=== PATIENT | female | born 1955 | race Caucasian/White ===

== ENCOUNTER → 2017-02-22 | Day surgery (SDC) | payer BC ==
[~2017-02-22] MED LIST: Lactated Ringers 1,000 ML IV SCH; Propofol 200 MG/20 ML SDV IV ONE
[2017-02-22 11:30] VITALS: BP 112/65
--- NOTE | 2017-02-25 07:23 | OR ---
DATE OF OPERATION: 02/22/2017 PREOPERATIVE DIAGNOSIS: EPIGASTRIC PAIN. POSTOPERATIVE DIAGNOSIS: EPIGASTRIC PAIN. SURGEON: Maynor Orta MD PROCEDURE: FULL-LENGTH ESOPHAGOGASTRODUODENOSCOPY WITH BIOPSIES X2, DOROTHEA. 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 COMPLICATIONS: None. SPECIMEN: 1. Antral biopsy x2. 2. DOROTHEA. FINDINGS: 1. Full-length EGD. 2. Mild gastritis without ulceration or erosion. RECOMMENDATIONS: Ongoing medical therapy. INDICATIONS: The patient had presented with epigastric pain. At that time, using a lot of anti-inflammatories, we elected to treat her empirically. She is still having some persistent pain, so we recommended EGD. DESCRIPTION OF PROCEDURE: The patient was prepped and draped, placed in the left lateral decubitus position. A lubricated Olympus gastroscope was inserted over a bit, advanced cricopharyngeus area and easily intubated in the esophagus. Esophageal lining was benign in its entire course. The Z-line was crisp and sharp at 39 cm. No hernia is seen. No distal esophagitis, stricturing, ulceration, or Castellano's changes. The scope advanced into the stomach through the pylorus into the third portion of duodenum. The second and third portion of the duodenum along with the duodenal bulb were completely unremarkable. The scope was brought back into the stomach and retroflexed. The upper fundus and cardia appeared completely benign. Thorough evaluation on rest of the gastric lining showed some chronic and indolent gastritis mainly located in the antrum without any focal ulceration or erosions. Biopsies x2 of the antrum were taken along with a DOROTHEA test. No other polyps, masses, or bleeding sites were seen. Air was then suctioned. Scope was removed without complication. EDUARDO/GI /[id number]
== END ==
LOC: CC.SDS 09:42
PROVIDERS: ATTEND Family Medicine
DX: K31.9 Disease of stomach and duodenum, unspecified (principal); Z88.2 Allergy status to sulfonamides; Z88.8 Allergy status to other drugs, medicaments and biological substances; Z79.899 Other long term (current) drug therapy; Z90.710 Acquired absence of both cervix and uterus; Z98.890 Other specified postprocedural states
CPT/HCPCS: 43239; 87081; J2704; J7120

== ENCOUNTER 2017-07-04 12:55 | Observation (INO) | payer BC ==
[2017-07-04] MEDS ORDERED: Sodium Chloride 0.9% 10 ML Syringe FLUSH PRN (14:39)
[2017-07-04] MEDS ORDERED: Temazepam 15 MG Cap PO PRN (14:39)
[2017-07-04] MEDS ORDERED: Polyethylene Glycol 3350 Powder 238 GM Bot PO PRN ×2 (14:45→15:19)
[2017-07-04] MEDS ORDERED: Pantoprazole 40 MG Vial IVPUSH SCH (15:00)
[2017-07-04 15:29] LABS: CHLORIDE,CL 104 mEq/L (98-106); SODIUM,NA 140 mEq/L (136-145)
[2017-07-04] MEDS ORDERED: traMADol 50 MG Tab PO PRN (18:15)
[2017-07-04] MEDS: Acetaminophen 325 MG Tab PO PRN (18:20)
[2017-07-04] MEDS ORDERED: ZOLPIDEM 12.5 MG PO SCH ×2 (20:00)
[2017-07-04] MEDS ORDERED: Sucralfate 1 GM Tab PO SCH (20:00)
[2017-07-05] MEDS ORDERED: Ondansetron 4 MG/2 ML SDV IVPUSH PRN (01:12)
[2017-07-05] MEDS ORDERED: ESTRADIOL 2 MG PO SCH (08:00)
[2017-07-05] MEDS ORDERED: Pantoprazole 40 MG Tab.CR PO SCH (08:00)
[2017-07-05] MEDS: Acetaminophen 325 MG Tab PO PRN (09:07)
[2017-07-05 11:44] VITALS: BP 105/66
--- NOTE | 2017-07-05 17:50 | OR ---
DATE OF OPERATION: 07/05/2017 PROCEDURE: STRESS TEST. DESCRIPTION OF PROCEDURE: Bernie is in the hospital for atypical chest pain, and we elected to proceed with stress testing and she is ruled out thus far for any cardiac ischemia. She was exercised using standard [place] protocol for a total exercise time of 10 minutes and 29 seconds. She was able to exercise in the treadmill stage IV without much difficulty. There was no chest pain during the testing phase. The test was stopped due to shortness of breath and reaching target heart rate. She had a maximal heart rate of 146 which was above target of 136 and maximum BP of 150/80. At maximum exercise, the patient had no exercise-induced arrhythmias. All ST segments appeared to be upsloping without any signs of ischemia. This was considered an adequate and negative treadmill stress test. EDUARDO/GI /[id number]
--- NOTE | 2017-07-08 08:27 | DISCH ---
ADMISSION DIAGNOSIS: Chest pain. DISCHARGE DIAGNOSIS: CHEST PAIN. HISTORY: The patient is a 62-year-old female, who came into my office for which she thought was a flu. She had been having some headaches and muscle aches. Did wake up on the morning of admission with some chest heaviness that went away in 20 minutes. She said this was associated with her legs feeling cold. We evaluated her in the clinic. At that time, she had normal labs including a D- dimer, troponin, and an EKG. Her chest x-ray looked fine. We elected to put her in the hospital for observation and serial cardiac enzymes and EKGs. HOSPITAL COURSE: The patient was essentially asymptomatic since she has been here. She did have some vomiting and diarrhea during the night, feeling better now this morning. She has not had any further chest pain. Denies any shortness of breath. We did do a standard Antwon stress test on the morning of discharge and she passed without difficulty with 10.5 minutes with normal vitals, asymptomatic, and a normal telemetry. We elected to discharge her home on her current medications. We will follow her up in the clinic as an outpatient. COMPLICATIONS: During the stay were none. CONSULTATIONS: None. PROCEDURES: Standard Antwon stress test. DISPOSITION: Discharged home. BARNEY /[id number]
== END 2017-07-05 13:38 | disposition home or self-care (01) ==
LOC: CC.MS 12:55 → UNDOADMOB 12:55 → CC.MS 14:39
PROVIDERS: ADMIT Family Medicine; ATTEND Family Medicine
DX: R07.9 Chest pain, unspecified (principal); Z88.1 Allergy status to other antibiotic agents; Z88.2 Allergy status to sulfonamides; Z88.8 Allergy status to other drugs, medicaments and biological substances; Z79.899 Other long term (current) drug therapy; Z90.710 Acquired absence of both cervix and uterus; Z98.890 Other specified postprocedural states; Z78.9 Other specified health status
CPT/HCPCS: 36415; 71020; 80048; 82550; 84484; 85025; 85379; 86140; 93005; 93017; 96374; 96375; A9270; C9113; G0378; J2405

== ENCOUNTER 2017-10-31 07:55 | Emergency (ER) | payer BC ==
[2017-10-31 08:24] VITALS: BP 117/71
[2017-10-31 08:37] LABS: CHLORIDE,CL 105 mEq/L (98-106); SODIUM,NA 138 mEq/L (136-145)
--- NOTE | 2017-10-31 08:38 | EDM.PDOC ---
ED HPI GENERAL MEDICAL PROBLEM - General Chief Complaint: General Stated Complaint: NOT FEELING WELL Time Seen by Provider: 10/31/17 08:15 Source of Information: Reports: Patient - History of Present Illness INITIAL COMMENTS - FREE TEXT/NARRATIVE: Bernie is a 62 year old female who presents to the ED with complaint of "not feeling well." She reports that she hasn't felt well since Saturday. She reports she had an upper molar pulled at the dental office on Saturday. She reports that they had a difficult time stopping the bleeding. She has not noted a large amount of bleeding since then, but does not some drainage from the site. Since then she has felt sick to her stomach. She reports she has felt nauseous, but has not vomited. She reports she feels very weak and fatigued. She reports she has not eaten or drank much since Saturday. Has also had intermittent epigastric pain. She does report a history of stomach ulcers a few years ago. She does not currently take anything for this. She also reports she gets sinus infections occasionally and does feel that she might have one currently. She c/o headache, facial pressure and pain, extending up into her eye sockets. Denies any diarrhea , abdominal pain, chest pain, shortness of breath, fever, chills, cough. Does c /o of some constipation. Has not had a bowel movement since Saturday, 3 days ago. Reports she normally takes Miralax, but hasn't been able to because of the nausea the past few days. - Related Data Allergies Allergy/AdvReac Type Severity Reaction Status Date / Time cephalexin [Cephalexin] Allergy Hives Verified 10/31/17 09:06 fluorouracil Allergy Hives Verified 10/31/17 09:06 fluoxetine Allergy Hives Verified 10/31/17 09:06 Sulfa (Sulfonamide Allergy Hives Verified 10/31/17 09:06 Antibiotics) sulfamethoxazole Allergy Cannot Verified 10/31/17 09:06 [From Bactrim] Remember trimethoprim [From Bactrim] Allergy Cannot Verified 10/31/17 09:06 Remember Mag Sulfate Allergy Seizure Uncoded 07/05/17 15:42 Home Meds: Home Meds Polyethylene Glycol 3350 [MiraLAX] 17 gm PO BID 02/18/14 [History] Zolpidem [Ambien] 12.5 mg PO BEDTIME 02/18/14 [History] Estradiol [Estrace] 2 mg PO DAILY 07/04/17 [History] Triamcinolone Acetonide [Triamcinolone Acetonide 0.5%] 1 applic TOP ASDIRECTED PRN 07/04/17 [History] traMADol HCl [Tramadol HCl] 1 - 2 tab PO Q6H PRN 07/04/17 [History] Amoxicillin 500 mg PO BID 14 Days #28 capsule 10/31/17 [Rx] Ondansetron 4 mg PO Q6H PRN #30 tablet 10/31/17 [Rx] Sucralfate [Carafate] 1 gm PO TID 30 Days #90 tablet 10/31/17 [Rx] Past Medical History HEENT History: Reports: Sinusitis Respiratory History: Reports: Asthma Gastrointestinal History: Reports: Chronic Constipation Neurological History: Reports: Concussion Oncologic (Cancer) History: Reports: Malignant Melanoma, Squamous Cell Carcinoma Dermatologic History: Reports: Melanoma - Past Surgical History HEENT Surgical History: Reports: Adenoidectomy, Tonsillectomy, Other (See Below) Other HEENT Surgeries/Procedures: removal of skin cancer on the face GI Surgical History: Reports: Cholecystectomy Female Surgical History: Reports: Hysterectomy, Kidney stone extraction Social & Family History - Family History Family Medical History: Noncontributory - Tobacco Use Smoking Status *Q: Never Smoker Second Hand Smoke Exposure: No - Caffeine Use Caffeine Use: Reports: Coffee - Recreational Drug Use Recreational Drug Use: No ED ROS GENERAL - Review of Systems Review Of Systems: See Below Constitutional: Reports: Weakness, Fatigue. Denies: Fever, Chills HEENT: Reports: Dental Pain, Rhinitis, Sinus Problem. Denies: Eye Pain, Vision Change Respiratory: Denies: Shortness of Breath, Pleuritic Chest Pain, Cough, Sputum, Hemoptysis Cardiovascular: Reports: Lightheadedness. Denies: Chest Pain, Dyspnea on Exertion, Edema Endocrine: Reports: Fatigue GI/Abdominal: Reports: Abdominal Pain, Anorexia, Constipation, Decreased Appetite, Nausea. Denies: Black Stool, Bloody Stool, Diarrhea, Hematemesis, Hematochezia, Melena, Mucous in Stool, Vomiting : Reports: No Symptoms. Denies: Discharge, Dysuria, Flank Pain, Frequency, Urgency Musculoskeletal: Reports: No Symptoms Skin: Reports: No Symptoms Neurological: Reports: Dizziness, Headache, Weakness. Denies: Confusion, Numbness, Syncope, Tingling Psychiatric: Reports: No Symptoms Hematologic/Lymphatic: Reports: No Symptoms Immunologic: Reports: No Symptoms ED EXAM, GENERAL - Physical Exam Exam: See Below Exam Limited By: No Limitations General Appearance: Alert, WD/WN, No Apparent Distress Eye Exam: Bilateral Eye: EOMI Ears: Normal External Exam, Normal Canal, Hearing Grossly Normal, Normal TMs Ear Exam: Bilateral Ear: TM normal Nose: No Blood, Nasal Swelling, Nasal Drainage, Clear Rhinorrhea Throat/Mouth: Normal Inspection, Normal Lips, Normal Teeth, Normal Gums, Normal Oropharynx, Normal Voice, No Airway Compromise, Other (inflammation and drainage to left upper 1st molar) Head: Atraumatic, Normocephalic Neck: Normal Inspection, Supple, Non-Tender, Full Range of Motion Respiratory/Chest: No Respiratory Distress, Lungs Clear, Normal Breath Sounds, No Accessory Muscle Use, Chest Non-Tender Cardiovascular: Normal Peripheral Pulses, Regular Rate, Rhythm, No Edema, No Gallop, No JVD, No Murmur, No Rub GI/Abdominal: Normal Bowel Sounds, Soft, No Organomegaly, No Distention, No Abnormal Bruit, No Mass, Pelvis Stable, Tender (epigastric area). No: Guarding , Rigid, Rebound Back Exam: Normal Inspection, Full Range of Motion. No: CVA Tenderness (L), CVA Tenderness (R) Extremities: Normal Inspection, Normal Range of Motion, Non-Tender, Normal Capillary Refill, No Pedal Edema Neurological: Alert, Oriented, CN II-XII Intact, Normal Cognition, Normal Gait, Normal Reflexes, No Motor/Sensory Deficits Psychiatric: Tearful Skin Exam: Warm, Dry, Intact, Normal Color, No Rash Lymphatic: No Adenopathy Course - Vital Signs Last Recorded V/S: Last Vital Signs Temp 97.7 F 10/31/17 08:13 Pulse 67 10/31/17 08:13 Resp 18 10/31/17 08:13 BP 117/71 10/31/17 08:13 Pulse Ox 65 L 10/31/17 08:13 - Orders/Labs/Meds Orders: Active Orders 24 hr Category Date Time Status CULTURE WOUND [RM] Stat Lab 10/31/17 08:25 Ordered Sodium Chloride 0.9% [Normal Saline] 1,000 ml Med 10/31/17 08:36 Active IV .BOLUS Medication Orders Sodium Chloride (Normal Saline) 1,000 mls @ 999 mls/hr IV .BOLUS ONE Stop: 10/31/17 09:36 Last Admin: 10/31/17 08:47 Dose: 999 mls/hr Labs: Laboratory Tests 10/31/17 10/31/17 10/31/17 Range/Units 08:15 08:18 08:18 WBC 6.1 (5.0-10.0) 10^3/uL RBC 4.51 (4.00-5.50) 10^6/uL Hgb 14.1 (12.0-16.0) g/dL Hct 43.9 (37.0-47.0) % MCV 97.3 H (82.0-94.0) fL MCH 31.3 (27.0-32.0) pg MCHC 32.1 L (33.0-38.0) g/dL RDW Coeff of Mohinder 11.4 (11.0-15.0) % Plt Count 237 (150-400) 10^3/uL Neut % (Auto) 70.0 (35-85) % Lymph % (Auto) 21.5 (10-55) % [place] % (Auto) 6.7 (0-16) % Eos % (Auto) 1.6 (0-5) % Baso % (Auto) 0.2 (0-3) % Neut # (Auto) 4.30 (1.80-7.00) 10^3/uL Lymph # (Auto) 1.32 (1.00-4.80) 10^3/uL [place] # (Auto) 0.41 (0.00-0.80) 10^3/uL Eos # (Auto) 0.10 (0.00-0.45) 10^3/uL Baso # (Auto) 0.01 10^3/uL D-Dimer, Quantitative (0.00-0.50) Sodium 138 (136-145) mEq/L Potassium 4.1 (3.5-5.0) mEq/L Chloride 105 (98-106) mEq/L Carbon Dioxide 31 (21-32) mmol/L BUN 15 (7-18) mg/dL Creatinine 0.9 (0.6-1.0) mg/dL Est Cr Clr Drug Dosing 52.36 mL/min Estimated GFR (MDRD) > 60 (>=60) mL/min Glucose 97 (75-99) mg/dL Calcium 8.8 (8.4-10.1) mg/dL Total Bilirubin 0.6 (0.0-1.0) mg/dL AST 18 (15-37) U/L ALT 17 (12-78) U/L Alkaline Phosphatase 47 (46-116) U/L C-Reactive Protein < 0.2 L (0.2-0.8) mg/dL Total Protein 6.7 (6.4-8.2) g/dL Albumin 3.5 (3.4-5.0) g/dL Urine Color Yellow (YELLOW) Urine Appearance Slightly cloudy (CLEAR) Urine pH 7.0 (4.5-8.0) Ur Specific [place] 1.020 (1.003-1.020) Urine Protein Trace H (NEGATIVE) mg/dL Urine Glucose (UA) Negative (NEGATIVE) mg/dL Urine Ketones Negative (NEGATIVE) mg/dL Urine Occult Blood Negative (NEGATIVE) Urine Nitrite Negative (NEGATIVE) Urine Bilirubin Negative (NEGATIVE) Urine Urobilinogen 2.0 H (0.2-1.0) EU/dL Ur Leukocyte Esterase Negative (NEGATIVE) Urine RBC Not seen (0-5) /HPF Urine WBC Not seen (0-5) /HPF Ur Epithelial Cells Many H (NOT SEEN) /HPF Amorphous Sediment Moderate H (NOT SEEN) /HPF 10/31/17 Range/Units 08:18 WBC (5.0-10.0) 10^3/uL RBC (4.00-5.50) 10^6/uL Hgb (12.0-16.0) g/dL Hct (37.0-47.0) % MCV (82.0-94.0) fL MCH (27.0-32.0) pg MCHC (33.0-38.0) g/dL RDW Coeff of Mohinder (11.0-15.0) % Plt Count (150-400) 10^3/uL Neut % (Auto) (35-85) % Lymph % (Auto) (10-55) % [place] % (Auto) (0-16) % Eos % (Auto) (0-5) % Baso % (Auto) (0-3) % Neut # (Auto) (1.80-7.00) 10^3/uL Lymph # (Auto) (1.00-4.80) 10^3/uL [place] # (Auto) (0.00-0.80) 10^3/uL Eos # (Auto) (0.00-0.45) 10^3/uL Baso # (Auto) 10^3/uL D-Dimer, Quantitative 0.24 (0.00-0.50) Sodium (136-145) mEq/L Potassium (3.5-5.0) mEq/L Chloride (98-106) mEq/L Carbon Dioxide (21-32) mmol/L BUN (7-18) mg/dL Creatinine (0.6-1.0) mg/dL Est Cr Clr Drug Dosing mL/min Estimated GFR (MDRD) (>=60) mL/min Glucose (75-99) mg/dL Calcium (8.4-10.1) mg/dL Total Bilirubin (0.0-1.0) mg/dL AST (15-37) U/L ALT (12-78) U/L Alkaline Phosphatase (46-116) U/L C-Reactive Protein (0.2-0.8) mg/dL Total Protein (6.4-8.2) g/dL Albumin (3.4-5.0) g/dL Urine Color (YELLOW) Urine Appearance (CLEAR) Urine pH (4.5-8.0) Ur Specific [place] (1.003-1.020) Urine Protein (NEGATIVE) mg/dL Urine Glucose (UA) (NEGATIVE) mg/dL Urine Ketones (NEGATIVE) mg/dL Urine Occult Blood (NEGATIVE) Urine Nitrite (NEGATIVE) Urine Bilirubin (NEGATIVE) Urine Urobilinogen (0.2-1.0) EU/dL Ur Leukocyte Esterase (NEGATIVE) Urine RBC (0-5) /HPF Urine WBC (0-5) /HPF Ur Epithelial Cells (NOT SEEN) /HPF Amorphous Sediment (NOT SEEN) /HPF Meds: Medications Generic Name Dose Route Start Last Admin Trade Name Freq PRN Reason Stop Dose Admin Sodium Chloride 1,000 mls @ 999 mls/hr 10/31/17 08:36 10/31/17 08:47 Normal Saline IV 10/31/17 09:36 999 mls/hr .BOLUS ONE Administration Discontinued Medications Generic Name Dose Route Start Last Admin Trade Name Nkiosq PRN Reason Stop Dose Admin Ondansetron HCl 4 mg 10/31/17 08:37 10/31/17 08:47 Zofran IVPUSH 10/31/17 08:38 4 mg STAT STA Administration - Re-Assessments/Exams Free Text/Narrative Re-Assessment/Exam: 10/31/17 08:59 Discussed lab results with patient. All labs stable. Discussed case with Dr. Orta, patients PCP. We will treat with 14 day course of amoxicillin. Will also give her zofran to use as needed for nausea. Patient would also like to start carafate again for "stomach ulcers." Will send script for that as well. Departure - Departure Time of Disposition: 09:07 Disposition: Home, Self-Care 01 Condition: Good Clinical Impression: Tooth abscess, Epigastric abdominal pain Acute recurrent sinusitis Qualifiers: Sinusitis location: maxillary Qualified Code(s): J01.01 - Acute recurrent maxillary sinusitis - Discharge Information Prescriptions: Amoxicillin 500 mg PO BID 14 Days #28 capsule Ondansetron 4 mg PO Q6H PRN #30 tablet PRN Reason: Nausea Sucralfate [Carafate] 1 gm PO TID 30 Days #90 tablet Referrals: Maynor Orta MD [Primary Care Provider] - Forms: ED Department Discharge Additional Instructions: Zofran as needed for nausea Antibiotics x 14 days. Take with food to avoid upset stomach. Carafate half hour prior to meals. May trial OTC omeprazole (Prilosec). Push fluids Tylenol as needed for pain Follow up with PCP if symptoms worsen or do not improve - My Orders Last 24 Hours: My Active Orders 10/31/17 08:25 CULTURE WOUND [RM] Stat 10/31/17 08:36 Sodium Chloride 0.9% [Normal Saline] 1,000 ml IV .BOLUS - Assessment/Plan Last 24 Hours: My Active Orders 10/31/17 08:25 CULTURE WOUND [RM] Stat 10/31/17 08:36 Sodium Chloride 0.9% [Normal Saline] 1,000 ml IV .BOLUS
[2017-10-31] MEDS: Sodium Chloride 0.9% 1,000 ML IV ONE (08:47)
[2017-10-31] MEDS: Ondansetron 4 MG/2 ML SDV IVPUSH STA (08:47)
== END 2017-10-31 09:40 | disposition home or self-care (01) ==
LOC: CC.ED 07:55
DX: J01.01 Acute recurrent maxillary sinusitis (principal); K04.7 Periapical abscess without sinus; R10.13 Epigastric pain; R11.0 Nausea; Z88.1 Allergy status to other antibiotic agents; Z88.8 Allergy status to other drugs, medicaments and biological substances; Z88.2 Allergy status to sulfonamides; J45.909 Unspecified asthma, uncomplicated; Z79.899 Other long term (current) drug therapy
CPT/HCPCS: 36415; 80053; 81001; 85025; 85379; 86140; 87070; 87804; 96361; 96374; 99284; J2405; J7030

== ENCOUNTER → 2023-01-25 | Day surgery (SDC) | payer MEDICARE, OTHER ==
[~2023-01-25] MED LIST changes: +Ketamine 200 MG/20 ML MDV ONE; -Propofol 200 MG/20 ML SDV IV ONE; +Propofol 200 MG/20 ML SDV ONE; +fentaNYL 50 MCG/ML SDV ONE
[2023-01-25 14:45] VITALS: BP 108/56; PULSE 77
== END ==
LOC: CC.SDS 12:06
PROVIDERS: ATTEND Family Medicine
DX: Z12.11 Encounter for screening for malignant neoplasm of colon (principal); D12.7 Benign neoplasm of rectosigmoid junction; K63.89 Other specified diseases of intestine; K57.30 Diverticulosis of large intestine without perforation or abscess without bleeding; F41.9 Anxiety disorder, unspecified; F32.A Depression, unspecified; G47.00 Insomnia, unspecified; G20 Parkinson's disease; I83.93 Asymptomatic varicose veins of bilateral lower extremities; M54.50 Low back pain, unspecified; G89.29 Other chronic pain; R25.1 Tremor, unspecified; Z88.1 Allergy status to other antibiotic agents; Z88.8 Allergy status to other drugs, medicaments and biological substances; Z88.0 Allergy status to penicillin; Z88.2 Allergy status to sulfonamides; Z90.710 Acquired absence of both cervix and uterus; Z90.09 Acquired absence of other part of head and neck; Z80.3 Family history of malignant neoplasm of breast; Z79.899 Other long term (current) drug therapy
CPT/HCPCS: 00811; J2704; J3010; J3490; J7120